=== PATIENT | male | born 1960 | race American Indian/Alaskan Native ===

== ENCOUNTER 2017-05-03 22:33 | Emergency (ER) | payer MEDICARE ==
[2017-05-03 23:34] LABS: Hematocrit 45.4 % (35.5-45.6); Hemoglobin 15.6 gm/dl (11.8-15.2); Mean Corpuscular HGB Conc 34 % (32-34); Mean Corpuscular Hemoglobin 34 pg (28-32); Mean Corpuscular Volume 100 fl (84-94); Platelet Count 180 K/mm3 (140-440); Red Blood Count 4.53 M/mm3 (3.65-5.03); Red Cell Distribution Width 14.1 % (13.2-15.2); White Blood Count 5.5 K/mm3 (4.5-11.0)
[2017-05-03 23:50] LABS: Anion Gap 17 mmol/L; BUN/Creatinine Ratio 14; Blood Urea Nitrogen 14 mg/dL (9-20); Carbon Dioxide 26 mmol/L (22-30); Chloride 104.6 mmol/L (98-107); Glucose 83 mg/dL (75-100); Potassium 4.4 mmol/L (3.6-5.0); Sodium 143 mmol/L (137-145)
[2017-05-03 23:54] LABS: Urine Drugs of Abuse Note Disclamer
--- NOTE | 2017-05-03 23:59 | Emergency Department Report ---
HPI - General Chief Complaint: Psych Time Seen by Provider: 05/03/17 23:02 - HPI HPI: This is a 57-year-old -[place] male presents to the emergency department , brought in by mobile crisis, related to a complaint he made 2 days ago of suicidal ideations. He says at that time that he was attempting to get inpatient detox for cocaine and alcohol abuse and that somehow he ended up connected to some type of [facility]. He told those people about his suicidal ideations. He says that currently he denies these suicidal ideations and denies any homicidal ideations or any hallucinations. However he says that he got a phone call from them this morning asking about his suicidal ideations and says that even though he told them he was not feeling suicidal, that they sent the mobile crisis team to his house. They recommended that he go to the emergency department but the patient did not want to do so and then says he woke up later after drinking and the police were knocking on his door to bring him to [facility] for further evaluation. He does admit to drinking today but says it's been 2 days since he last used cocaine. ED Past Medical Hx - Past Medical History Previous Medical History?: Yes Hx Psychiatric Treatment: Yes (schizophrenia) - Surgical History Past Surgical History?: Yes - Social History Smoking Status: Current Every Day Smoker Substance Use Type: Alcohol, Cocaine ED Review of Systems ROS: Stated complaint: MH Other details as noted in HPI Comment: All other systems reviewed and negative Constitutional: denies: chills, fever Eyes: denies: eye pain, eye discharge, vision change ENT: denies: ear pain, throat pain Respiratory: denies: cough, shortness of breath, wheezing Cardiovascular: denies: chest pain, palpitations Gastrointestinal: denies: abdominal pain, nausea, diarrhea Genitourinary: denies: urgency, dysuria Musculoskeletal: denies: back pain, joint swelling, arthralgia Skin: denies: rash, lesions Neurological: denies: headache, weakness, paresthesias Physical Exam - Physical Exam Vital Signs: Vital Signs 05/03/17 23:00 Temperature 98.9 F Pulse Rate 77 Respiratory 18 Rate Blood Pressure 113/76 [Left] O2 Sat by Pulse 97 Oximetry Physical Exam: GENERAL: The patient is well-developed well-nourished. HENT: Normocephalic. Atraumatic. Patient has moist mucous membranes. EYES: Extraocular motions are intact. Pupils equal reactive to light bilaterally. NECK: Supple. Trachea is midline. CHEST/LUNGS: Clear to auscultation. There is no respiratory distress noted. HEART/CARDIOVASCULAR: Regular. There is no tachycardia. There is no gallop rub or murmur. ABDOMEN: Abdomen is soft, nontender. Patient has normal bowel sounds. There is no abdominal distention. SKIN: Skin is warm and dry. NEURO: The patient is awake, alert, and oriented. The patient is cooperative. The patient has no focal neurologic deficits. The patient has normal speech. MUSCULOSKELETAL: There is no tenderness or deformity. There is no limitation range of motion. There is no evidence of acute injury. ED Course Vital Signs 05/03/17 23:00 Temperature 98.9 F Pulse Rate 77 Respiratory 18 Rate Blood Pressure 113/76 [Left] O2 Sat by Pulse 97 Oximetry ED Medical Decision Making - Lab Data Result diagrams: 05/03/17 23:13 05/03/17 23:13 - Medical Decision Making Originally this patient admitted to some suicidal ideations 2 days ago and acted as if it was abnormal for the mobile crisis team to come and uproot him from home today and bring him into the hospital. However he later tells the [facility] behavioral counselor, Antwan, that when he is drinking he will sometimes have an exacerbation of his schizophrenia and that'll cause auditory hallucinations that tell him to harm himself. He continues to drink and he feels that if he does not get some inpatient help that he might continue to have these suicidal ideations and one day act on them. For this reason the patient has been made a 1013. The behavioral counselor is in agreement with this. His labs are mostly unremarkable. Blood alcohol level was 0.09 but now would be down below the legal limit if not 0. Vital signs stable including being afebrile. He is medically cleared for psychiatric placement. - Differential Diagnosis substance abuse, depression, bipolar disorder, schizophrenia Critical Care Time: No Critical care attestation.: If time is entered above; I have spent that time in minutes in the direct care of this critically ill patient, excluding procedure time. ED Disposition Clinical Impression: Alcohol abuse, Suicidal ideations Schizophrenia Qualifiers: Schizophrenia type: unspecified Qualified Code(s): F20.9 - Schizophrenia, unspecified Disposition: [id number]/[id number] PSY HOSP/PSY UNIT Is pt being admited?: No Condition: Stable Referrals: PRIMARY CAREMD [Primary Care Provider] - 3-5 Days Time of Disposition: 02:36
[2017-05-04 00:04] LABS: Bilirubin,Urine NEG (Negative); Blood,Urine NEG (Negative); Ketones,Urine NEG (Negative); Leukocyte Esterase,Urine NEG (Negative); Mucus,Urine FEW /HPF; Nitrite,Urine NEG (Negative); Protein,Urine <15 mg/dL mg/dL (Negative); Urobilinogen,Urine < 2.0 mg/dL (<2.0); WBC,Urine < 1.0 /HPF (0.0-6.0)
[2017-05-04 00:24] LABS: Anisocytosis 1+; Blastocytes % (Manual) 0 %; Diff Status Complete
[2017-05-04] MEDS ORDERED: TYLENOL PO ONE (00:40)
[2017-05-04 07:47] VITALS: BP 106/66
--- NOTE | 2017-05-04 13:48 | Consultation ---
History of Present Illness - Reason for Consult Consult date: 05/04/17 Reason for consult: Mental Health Evaluation Requesting physician: TRACEE BRENNER - Chief Complaint Chief complaint: "When can I leave" - History of Present Psychiatric Illness This is a 57-year-old -[place]ian male presents to the emergency department , brought in by mobile crisis, related to a complaint he made 2 days ago of suicidal ideations. Today patient is calm and cooperative during the assessment. He stated having thoughts of suicide for the past couple days. He could not confirm or deny SI. He denies having a plan at this time. He stated that his main concern is getting help for his substance and alcohol abuse. He denies being depressed (hopeless and helpless), but stated that he is stressed because he can't get any help (rehab services). He stated the stress has cause him to think about "Not living anymore." He stated drinking alcohol (etoh) for the past 35 years for recreational purposes. He denies HI's and AVH"s. He denies a mental health dx. UDS positive for cocaine. Medications and Allergies Allergies Allergy/AdvReac Type Severity Reaction Status Date / Time No Known Allergies Allergy Unverified 05/03/17 22:53 Past psychiatric history - Past Medical History Past Medical History: No medical history Past Surgical History: No surgical history - past Psychiatric treatment and history psychiatric treatment history: He denies a psy hx. Fam hx of alcoholism. - Social History Social history: Lives alone, other Mental Status Exam - Vital signs Last Vital Signs Temp 98.3 F 05/04/17 07:46 Pulse 73 05/04/17 07:46 Resp 20 05/04/17 07:46 BP 106/66 05/04/17 07:46 Pulse Ox 98 05/04/17 07:46 - Exam Narrative exam: MSE: Appearance: calm, cooperative Behavior: regular eye contact Speech: regular rate and tone Mood: "fine" Affect: congruent to mood Thought Process: circumstantial Thought Content: denies HI and AVH's Motor Activity: ambulatory Cognition: A/O x3 Insight: variable Judgment: variable Results Result Diagrams: 05/03/17 23:13 05/03/17 23:13 Abnormal lab results 05/03/17 05/03/17 Range/Units 23:13 23:13 Hgb 15.6 H (11.8-15.2) gm/dl MCV 100 H (84-94) fl MCH 34 H (28-32) pg Seg Neuts % (Manual) 26.0 L (40.0-70.0) % Lymphocytes % (Manual) 64.0 H (13.4-35.0) % Nucleated RBC % 2.0 H (0.0-0.9) % Seg Neutrophils # Man 1.4 L (1.8-7.7) K/mm3 Plasma/Serum Alcohol 0.09 H (0-0.07) gm% All other labs normal. Assessment and Plan Assessment and plan: Impression: Alcohol Use DO. Unspecified Mood DO. Substance Use DO (cocaine). Today patient is calm and cooperative during the assessment. Patient endorse passive SI's. Positive for cocaine. Alcohol serum 0.09 on admission. DDx: R/O Mood DO, Alcohol Induced Mood DO Recommendation/Plan: Continue 1013 with placement to [facility] today.
== END 2017-05-04 08:33 ==
LOC: EEVIPCON 22:33 → ED 22:33
DX: F20.9 Schizophrenia, unspecified (principal); R45.851 Suicidal ideations; F10.10 Alcohol abuse, uncomplicated; F17.200 Nicotine dependence, unspecified, uncomplicated
CPT/HCPCS: 36415; 80048; 80307; 81001; 85007; 85025; 99285; G0480; 80320